=== PATIENT | female | born 1995 ===

== ENCOUNTER 2018-03-19 10:06 | Observation (INO) | payer BC ==
[2018-03-19] MEDS ORDERED: Sodium Chloride 0.9% 1,000 ML IV STA (10:58)
--- NOTE | 2018-03-19 11:35 | ED PDOC ---
HPI: General Adult Time Seen by Provider: 03/19/18 10:37 Chief Complaint (Nursing): Upper Extremity Problem/Injury History Per: Patient Additional Complaint(s): Pt. states 2 days ago she sustained a fracture to the L elbow and was treated in [facility] [place] ED and was also evaluated by Dr. Adam (orthopedist). She was advised to come to ED today for further evaluation. Denies new trauma, numbness, tingling. Past Medical History Reviewed: Historical Data, Nursing Documentation, Vital Signs Vital Signs: Last Vital Signs Temp 98.8 F 03/19/18 13:30 Pulse 87 03/19/18 13:30 Resp 18 03/19/18 13:30 BP 119/55 L 03/19/18 13:30 Pulse Ox 97 03/19/18 13:29 - Surgical History Surgical History: No Surg Hx - Family History Family History: States: No Known Family Hx - Home Medications Home Medications: Ambulatory Orders Medication Instructions Recorded oxyCODONE/Acetaminophen [Percocet 1 tab PO QID PRN #20 tab 03/17/18 5/325 mg Tab] - Allergies Allergies/Adverse Reactions: Allergies Allergy/AdvReac Type Severity Reaction Status Date / Time No Known Allergies Allergy Verified 03/17/18 04:54 Review of Systems ROS Statement: Except As Marked, All Systems Reviewed And Found Negative Physical Exam - Physical Exam Appears: Positive for: Well, Non-toxic, No Acute Distress Skin: Positive for: Normal Color, Warm. Negative for: Rash Eye Exam: Positive for: Normal appearance Neck: Positive for: Normal, Painless ROM Cardiovascular/Chest: Positive for: Regular Rate, Rhythm Respiratory: Positive for: Normal Breath Sounds. Negative for: Respiratory Distress Gastrointestinal/Abdominal: Positive for: Normal Exam, Soft. Negative for: Tenderness Extremity: Positive for: Other (L arm in posterior elbow splint and sling; cap refill < 2 seconds on L hand; no swelling to fingers on L hand) Neurologic/Psych: Positive for: Alert, Oriented (x3), Gait (steady, unassisted) . Negative for: Aphasia, Facial Droop - Laboratory Results Result Diagrams: 03/19/18 11:20 03/19/18 11:20 Urine POC: Negative - ECG ECG: Positive for: Interpreted By Me ECG Rhythm: Positive for: Sinus Rhythm. Negative for: ST/T Changes Rate: 67 O2 Sat by Pulse Oximetry: 99 - Radiology X-Ray: Interpreted by Me (CXR; L ebow x-ray) - Progress ED Course And Treament: Case d/w Dr. Adam who requests pre-op clearance and additional L elbow x-ray. States he will take patient to the OR today. Disposition - Clinical Impression Clinical Impression: Elbow fracture - Patient ED Disposition Is Patient to be Admitted: No - Disposition Disposition Time: 10:56 Condition: STABLE
[2018-03-19 11:46] LABS: ALB/GLOB RATIO 1.2 (1.0-2.1); ALBUMIN 4.5 g/dL (3.5-5.0); ALT/SGPT 23 U/L (9-52); AST/SGOT 25 U/L (14-36); BLOOD UREA NITROGEN 10 mg/dl (7-17); CALCIUM 9.6 mg/dL (8.4-10.2); GFR NON-AFRICAN AMERICAN > 60
[2018-03-19 11:48] LABS: BASO # 0.1 K/uL (0.0-0.2); BASO % 0.8 % (0.0-2.0); EOS # 0.1 K/uL (0.0-0.7); EOS % 0.9 % (0.0-4.0); HEMOGLOBIN 11.9 g/dL (12.0-16.0); LYMPH # 1.8 K/uL (1.0-4.3); LYMPH % 20.8 % (20.0-40.0); MEAN CELL VOLUME 85.7 fl (81.0-99.0); MEAN CORPUSCULAR HEMOGLOBIN 28.8 pg (27.0-31.0); MEAN CORPUSCULAR HGB CONC 33.7 g/dL (33.0-37.0); MEAN PLATELET VOLUME 8.5 fl (7.2-11.7); MONO # 0.5 K/uL (0.0-0.8); NEUT # 6.2 K/uL (1.8-7.0); NEUT % 71.5 % (50.0-75.0); NRBC % 0.1 % (0.0-0.0); RBC 4.14 Mil/uL (3.80-5.20); WHITE BLOOD COUNT 8.7 K/uL (4.8-10.8)
[2018-03-19 11:58] LABS: SQUAMOUS EPITHIAL 4 /hpf (0-5); URINE BACTERIA MOD (<OCC); URINE BILIRUBIN NEGATIVE (NEGATIVE); URINE BLOOD NEGATIVE (NEGATIVE); URINE CLARITY CLOUDY (Clear); URINE COLOR YELLOW (YELLOW); URINE GLUCOSE (UA) NEG (Normal); URINE LEUKOCYTE ESTERASE NEG Leu/uL (Negative); URINE PROTEIN NEGATIVE (NEGATIVE)
--- NOTE | 2018-03-19 12:06 | RAD ---
Date of service: 03/19/2018 PROCEDURE: Radiographs of the left elbow. HISTORY: elbow fracture; as requested by Dr. Adam COMPARISON: No prior. FINDINGS: BONES: Incompletely visualized comminuted distal humeral fracture with intercondylar components. JOINTS: No evidence of subluxation or dislocation. SOFT TISSUES: Normal. JOINT EFFUSION: None. OTHER FINDINGS: None IMPRESSION: Complex, comminuted intercondylar fracture distal left humerus. Limitations of the current study: Detail obscured by overlying fiberglass cast.
--- NOTE | 2018-03-19 12:07 | RAD ---
Date of service: 03/19/2018 HISTORY: clearance COMPARISON: No prior. FINDINGS: LUNGS: No active pulmonary disease. PLEURA: No significant pleural effusion identified, no pneumothorax apparent. CARDIOVASCULAR: Normal. OSSEOUS STRUCTURES: No significant abnormalities. VISUALIZED UPPER ABDOMEN: Normal. OTHER FINDINGS: None. IMPRESSION: No active disease.
[2018-03-19 12:15] LABS: INR 1.2; PROTHROMBIN TIME 13.2 Seconds (9.8-13.1)
[2018-03-19] MEDS ORDERED: ceFAZolin IV 1 gm in Dextrose 1 GM/50 ML BAG IVPB ONE (13:54)
[2018-03-19] MEDS ORDERED: Bupivacaine HCl 0.5% PF (30 ml) Inj ONE ×2 (13:54→14:02)
[2018-03-19] MEDS ORDERED: Sodium Chloride 0.9% 10 ML IV ONE (14:06)
[2018-03-19] MEDS ORDERED: Lidocaine 1% MPF (30 ml) Inj ONE (14:10)
[2018-03-19] MEDS ORDERED: Lactated Ringer's 1,000 ML IV ONE ×2 (14:22→16:10)
[2018-03-19] MEDS ORDERED: Propofol 10 mg/ml Inj (20 ML) ONE (14:23)
[2018-03-19] MEDS ORDERED: Succinylcholine 200 mg/10 ml Inj IV ONE (14:27)
[2018-03-19] MEDS ORDERED: Rocuronium 10 mg/ml (5 ml) ONE (14:27)
[2018-03-19] MEDS ORDERED: Midazolam 2 MG/2 ML VIAL ONE (14:27)
--- NOTE | 2018-03-19 15:59 | PCM.ANESB4 ---
Infraclavicular Block - Femoral Nerve Block Date of Procedure: 03/19/18 Anesthesiologist: Ivan Louis Pre-Procedure Diagnosis: L elbow fracture Post-Procedure Diagnosis: L elbow fracture Procedure Performed: Brachial Plexus at the Infraclavicular area Left - Procedure Infraclavicular Block: The procedure was explained to the patient that it is for the post-operative pain management. Consent was obtained after a thorough discussion with the patient regarding the benefits and possible complications of local anesthetic block of the brachial plexus at the infraclavicular area. The patient was brought to the operating room and standard monitors were applied. Time-out was held with the circulating nurse to confirm the correct surgery and the appropriate block. After applying oxygen by nasal cannula and administering IV Sedation, patient's head was gently rotated away from the operative left shoulder and the area medial to the coracoid process and inferior to the clavicle was carefully palpated. The ultrasound transducer was then applied to the skin in the transverse plane and the brachial plexus was visualized surrounding the axillary artery and deep to the pectoralis major and minor muscles. After thorough identification, this area was prepped with 1 large Chloroprep stick and 1 % Lidocaine was injected subcutaneously for topical anesthesia. At this point, a #21 gauge Stimuplex 4-inch needle was inserted cephalad to the ultrasound transducer and inferior to the clavicle in-plane towards the posterior aspect of the axillary artery. Needle advancement was performed carefully under ultrasound visualization. Nerve stimulator was used and twitch of the affected extremity including fingers, hand, wrist and elbow was obtained at current of 1MA. After repeated negative aspiration, 5cc of 0.375% bupivacaine was injected and this was followed with another 25 cc of 0.375% bupivacaine in 5cc increments. Under ultrasound guidance the local anesthetics were observed surrounding the cords of the brachial plexus. The needle was removed intact and sterile dressing was applied. The patient had stable vital signs, was conscious and in no apparent distress. The patient tolerated the infraclavicular block of the brachial plexus well with stable vital signs was prepared for subsequent surgery.
[2018-03-19] MEDS ORDERED: Liquid Adhesive TOP ONE (18:28)
--- NOTE | 2018-03-19 19:16 | PCM.SURG1 ---
Surgeon's Initial Post Op Note - Surgeon's Notes Surgeon: Oliver Adam MD Manufacturing Engineer Chief: Tayler Mattson PA-C; Scott Forde PA-C Type of Anesthesia: General Endo, Other (Left infraclavicular block pre-op ) Pre-Operative Diagnosis: Left elbow displaced comminuted supracondylar fx Operative Findings: see op report Post-Operative Diagnosis: same as pre-op dx Operation Performed: ORIF left elbow fx and release of ulnar nerve Specimen/Specimens Removed: none Estimated Blood Loss: EBL {In ML}: 75 Date of Surgery/Procedure: 03/19/18 Time of Surgery/Procedure: 15:00
[2018-03-19] MEDS ORDERED: Oxycodone/Acetaminophen 5/325 mg Tab PO PRN (19:19)
[2018-03-19] MEDS ORDERED: HYDROmorphone 1 mg/ml ISec IVP PRN (19:44)
[2018-03-19] MEDS ORDERED: Lactated Ringer's 1,000 ML IV SCH (19:45)
[2018-03-19] MEDS ORDERED: ceFAZolin 1 GM in Sodium Chloride 0.9% 100 ML IVPB ONE (20:30)
[2018-03-19 22:56] VITALS: BP 114/73; PULSE 87; RESP 20; TEMP 98.8; O2SAT 99
[2018-03-20] MEDS ORDERED: ceFAZolin 1 GM in Sodium Chloride 0.9% 100 ML IVPB ONE (02:00)
--- NOTE | 2018-03-20 08:35 | CARD ---
APPROVED REPORT Date of service: 03/19/2018 <Conclusion> Normal sinus rhythm Normal ECG
--- NOTE | 2018-03-20 11:25 | RAD ---
Date of service: 03/19/2018 PROCEDURE: HISTORY: s/p ORIF left elbow fx COMPARISON: 03/19/2018 TECHNIQUE: Two views FINDINGS: There is medial an lateral plating and fixation of the comminuted distal humeral intercondylar fracture fragments. On the lateral view small fracture fragments project over the antecubital region - likely part of the comminuted fracture fragment process. Cerclage wires and pins project over the olecranon on the lateral view and proximal radius. The elbow joint alignment has been restored to normal. Casting material projects over the posterior aspect of the upper arm and forearm IMPRESSION: Status post open reduction internal fixation of left elbow fractures as referenced above
--- NOTE | 2018-03-21 11:52 | RAD ---
Date of service: 03/19/2018 PROCEDURE: Fluoroscopy in excess of 1 hour. HISTORY: FLUOROSCOPY COMPARISON: None TECHNIQUE: Standard protocol for this study/examination. FINDINGS: Submitted images from the current procedure: 4.0 IMPRESSION: Fluoroscopy in excess of 1 hour.
--- NOTE | 2018-03-24 23:16 | OP ---
Copied To: Oliver Adam MD Attending MD: Oliver Adam MD PROCEDURE DATE: 03/19/2018 SURGEON: Oliver Adam MD SENIOR COMMUNICATIONS SPECIALIST: JAYNE Mullen PREOPERATIVE DIAGNOSES: 1. Displaced three-part supracondylar fracture with intercondylar extension, left elbow. 2. Left ulnar nerve neuropathy, cubital tunnel syndrome. POSTOPERATIVE DIAGNOSES: 1. Displaced three-part supracondylar fracture with intercondylar extension, left elbow. 2. Left ulnar nerve neuropathy, cubital tunnel syndrome. 3. Olecranon fracture, proximal ulna. PROCEDURES: 1. Open reduction and internal fixation of supracondylar fracture three-part with intercondylar extension using Synthes parallel plate, 05480. 2. Open reduction and internal fixation using a tension band technique for olecranon fracture, 99734. 3. Neuroplasty of the ulnar nerve at the elbow and cubital tunnel release, 27298. 4. Open debridement of fracture fragments of the left elbow, 92637. 5. Fluoroscopic intraoperative usage of greater than 1 hour, 33791. ANESTHESIA: General and left upper extremity block. ESTIMATED BLOOD LOSS: Minimal. COMPLICATIONS: None. SPECIMENS: None. DISPOSITION: Stable to recovery room. INDICATIONS: This is a 22-year-old female, who presents with displaced left supracondylar humerus fracture as indicated for the above surgery, also with ulnar nerve signs and symptoms, which the patient was indicated for an emergent surgery. DESCRIPTION OF PROCEDURE: The patient was brought to the operating room, placed supine, underwent regional left upper extremity block, followed by general anesthesia. Prophylactic antibiotics were given. The patient was turned into a lateral decubitus position. A non-sterile tourniquet was placed on the patient's left upper extremity. The entire extremity was then prepped and draped in standard surgical fashion. A posterior elbow incision was outlined. The arm was elevated and exsanguinated. Time-out was performed. Incision was made through the skin only. All superficial veins were cauterized. Flaps were raised. Dissection was carried down to identifying the ulnar nerve. Ulnar nerve was identified proximally and a full decompression with neuroplasty was performed using Littler scissors. the cubital tunnel ligament and the two heads of the flexor carpi ulnaris tendons were released to decompress the ulnar nerve. The ulnar nerve was then moved out of the way of the fracture site and held protected with a vessel loop. Work was then begun on identifying the fracture. Due to the severity of the fracture, olecranon osteotomy was indicated. A Chevron olecranon osteotomy was performed with a micro-sagittal saw, followed by osteotomes. The olecranon was elevated with the entirety of the triceps. It was elevated proximally and the fracture site was exposed. The fracture site was highly displaced with shortening and intercondylar extension. There was extensive hematoma. The fracture fragments were debrided with rongeur, curettes, and irrigation. Work was then begun on provisionally reducing the fragments. First, articular fragments were reduced anatomically and held provisionally with Anand wires. After the articular fragments were reduced, reduction was performed to the columns of the humerus. This reduction was provisionally held with K-wires in both medial and lateral column. Next, medial and lateral column plate was selected and placed provisionally on the medial and lateral side of the supracondyle. They were held provisionally with K-wires and proximal screw in the oblong hole. Fluoroscopic images confirmed anatomic reduction of the supracondylar fracture fragments and good placement of plates in both AP and lateral and oblique views. The joint was congruent and well reduced. Next, work was begun on compressing the articular fractures with clamp and multiple locking screws were placed across the fracture fragments and the plate using standard AO technique. After this, the articular fracture fragments were compressed to the lateral and medial columns using reduction clamps and also locking screws in the proximal holes of both medial and lateral plates. All screw holes were filled in standard AO fashion. There was anatomic reduction and compression of all the fracture fragments. No gapping of the fracture fragment was evident. There was no instability with full range of motion of the elbow. Fluoroscopic images confirmed excellent reduction with good placement of hardware and rigid fixation of the fracture fragments. The wound was then copiously irrigated, tourniquet was deflated, and hemostasis was obtained. Work was then begun on fixing the olecranon fracture. The olecranon fracture fragment was openly reduced to the proximal ulna and held provisionally with reduction clamp. Next, two 6.2-mm Anand wires were placed across the fracture fragment. Fluoroscopic images confirmed the extraarticular placement of the K-wires and excellent positioning. Next, a 2-0 mm drill was used transversely over the proximal ulna to pass a cerclage wire. The cerclage wire was passed though the drill hole and [id number] configuration was placed across the proximal edge of the K-wires deep to the triceps insertion point. The wire was tightened, fracture gap was closed. This reconstructed excellent tension band technique. The proximal wires were cut short, bent, and advanced into the proximal ulna finishing the construct. Fluoroscopic images again confirmed excellent placement of the tension band with no gapping of the olecranon site. The supracondylar fracture was also well reduced with no gapping or instability. Full range of motion of the elbow was obtained including flexion, extension, supination, and pronation. Hemostasis was then obtained. The ulnar nerve was again checked for any instability. The soft tissue was closed over the plates using 0 Vicryl sutures. The ulnar nerve was placed back over the medial epicondyle. Subcutaneous deep layers of the tissue were then closed with 0 Vicryl, followed by 2-0 Vicryl, followed by Monocryl for the skin. The patient tolerated the procedure well. Sterile dressing was applied consisting of Xeroform, 4 x 4's, Webril, and a long-arm posterior splint. The patient was returned to the recovery room in excellent condition. During the case, I was assisted by Tayler Mattson PA-C, a licensed physician assistant executive housekeeper. Her help was needed for primary positioning, reduction, and closure of the wound. Her assistance was vital for intraoperative safety of the patient. Oliver Adam MD
--- NOTE | 2018-03-25 07:47 | CON ---
Copied To: Oliver Adam MD Attending MD: Oliver Adam MD DATE: 03/19/2018 REASON FOR CONSULTATION: Left elbow trauma. HISTORY OF PRESENT ILLNESS: A 22-year-old female who presents to [facility] with complaints of left elbow pain. The patient sustained a fall and slipped while doing down the stairs in the restaurant and landing on the left elbow. She presents with severe pain and swelling of the elbow. Initial x-rays confirmed multi-fragmented supracondylar humerus fracture. I was consulted for further evaluation and treatment. PHYSICAL EXAMINATION: EXTREMITIES: Left elbow: There is diffuse swelling. The patient has difficulty moving the elbow due to pain. Also, there is decreased sensation over the ulnar nerve distribution with numbness over the ulnar two digits. The patient has weakness with the handgrip. Full range of motion of the elbow. No tenderness over the distal forearm. Skin is intact. Distal pulses are palpable and +2. IMAGING: X-rays were seen and reviewed of the left elbow showed displaced three-part intercondylar extension supracondylar fracture. CT scan was also seen and reviewed showed three-part with intercondylar displacement supracondylar fracture with some comminution. ASSESSMENT: Left elbow supracondylar fracture with displacement. PLAN: I discussed the above findings with the patient and at this time, I recommended that the patient to undergo an emergent surgery due to swelling and nerve symptoms. This will include open reduction and internal fixation of her supracondylar fracture and cubital tunnel ulnar nerve release. The risks and benefits of the surgery were explained. The risks included, but not limited to bleeding, infection, tendon nerve, vascular injury, instability, chronic pain, and potential need for additional surgery in the future. The patient was taken to the operating room to undergo the above surgery. Oliver Adam MD
== END 2018-03-19 22:00 | disposition home or self-care (01) ==
LOC: H.ER 10:06 → H.ERHOLD 12:04 → H.ER 13:30 → H.MEDSURG1 21:09
DX: S42.402A Unspecified fracture of lower end of left humerus, initial encounter for closed fracture (principal); X58.XXXA Exposure to other specified factors, initial encounter; G56.22 Lesion of ulnar nerve, left upper limb; S52.022A Displaced fracture of olecranon process without intraarticular extension of left ulna, initial encounter for closed fracture
CPT/HCPCS: 11044; 24546; 24685; 64718; 71045; 73070; 73080; 80053; 81003; 81025; 85025; 85610; 85730; 86850; 86900; 93005; 99285; C1713; G0378; J0330; J0690; J2001; J2250; J2704; J3010; J7030; J7120

== ENCOUNTER 2018-03-20 13:04 | Emergency (ER) | payer BC ==
[2018-03-20 13:13] VITALS: BP 113/64; PULSE 75; RESP 19; TEMP 98.8; O2SAT 97
[2018-03-20] MEDS ORDERED: Oxycodone/Acetaminophen 5/325 mg Tab PO STA (13:23)
[2018-03-20] MEDS ORDERED: Oxycodone/Acetaminophen 5/325 mg Tab ONE (13:43)
--- NOTE | 2018-03-20 14:38 | ED PDOC ---
HPI: Wound Care - HPI Time Seen by Provider: 03/20/18 13:13 Chief Complaint (Nursing): Wound Check Chief Complaint (Provider): Hand swelling and elbow pain History Per: Patient Exam Limitations: no limitations Onset/Duration Of Symptoms: Hrs (today) Location Of Injury: Left: Elbow Additional Complaint(s): Dontae Hinojosa, a 22 year old female with no significant past medical history, presents to the emergency room with left elbow pain and hand swelling onset today. Patient was seen yesterday here for left elbow fracture and had surgery performed by Dr. Adam. Patient was discharged home with a prescription of Percocet which she took as needed for pain. She took one tablet today with no relief of pain and noticed increased swelling of her left hand today which prompted her emergency room visit. She denies any other medical complaints. PMD: None provided Past Medical History Reviewed: Historical Data, Nursing Documentation, Vital Signs Vital Signs: Last Vital Signs Temp 98.8 F 03/20/18 13:12 Pulse 75 03/20/18 13:12 Resp 19 03/20/18 13:12 BP 113/64 03/20/18 13:12 Pulse Ox 97 03/20/18 13:12 - Medical History PMH: No Chronic Diseases - Surgical History Other surgeries: Elbow fracture - Family History Family History: States: Unknown Family Hx - Social History Current smoker - smoking cessation education provided: No Alcohol: Social Drugs: Denies - Home Medications Home Medications: Ambulatory Orders Medication Instructions Recorded oxyCODONE/Acetaminophen [Percocet 1 tab PO QID PRN #20 tab 03/17/18 5/325 mg Tab] - Allergies Allergies/Adverse Reactions: Allergies Allergy/AdvReac Type Severity Reaction Status Date / Time No Known Allergies Allergy Verified 03/20/18 13:08 Review of Systems ROS Statement: Except As Marked, All Systems Reviewed And Found Negative Musculoskeletal: Positive for: Other (left elbow pain and left hand swelling) Physical Exam - Reviewed Nursing Documentation Reviewed: Yes Vital Signs Reviewed: Yes - Physical Exam Appears: Positive for: Non-toxic, No Acute Distress Head Exam: Positive for: ATRAUMATIC, NORMAL INSPECTION, NORMOCEPHALIC Skin: Positive for: Normal Color, Warm, DRY Eye Exam: Positive for: EOMI, Normal appearance, PERRL ENT: Positive for: Normal ENT Inspection Neck: Positive for: Normal, Painless ROM Cardiovascular/Chest: Positive for: Regular Rate, Rhythm Respiratory: Positive for: Normal Breath Sounds. Negative for: Respiratory Distress Pulses-Radial (L): 2+ Pulses-Radial (R): 2+ Extremity: Positive for: Normal ROM (to all digits), Swelling (left hand moderate edema), Other (distal sensation intact ) Neurologic/Psych: Positive for: Alert, Oriented - ECG O2 Sat by Pulse Oximetry: 97 (RA) Pulse Ox Interpretation: Normal Medical Decision Making Medical Decision Making: Time: 13:13 Initial Impression: elbow pain, hand swelling Initial Plan: --Orthopedic consult --Percocet 1 tab PO -spoke to Dr. Adam who suggested to loosen the ashly wrap around the splint -patient was instructed to follow up in his office on Sunday Scribe Attestation: Documented by Marilou Shannon, acting as a scribe for JAYNE Johnson. Provider Scribe Attestation: All medical record entries made by the Scribe were at my direction and personally dictated by me. I have reviewed the chart and agree that the record accurately reflects my personal performance of the history, physical exam, medical decision making, and the department course for this patient. I have also personally directed, reviewed, and agree with the discharge instructions and disposition. Disposition - Clinical Impression Clinical Impression: Encounter for postoperative wound check - Disposition Condition: STABLE Additional Instructions: Follow up with Dr. Adam on Sunday Instructions: Surgical Wound (DC) Forms: [employer] (Rwandan)
--- NOTE | 2018-03-20 14:54 | ED PDOC ---
HPI: Wound Care - HPI Time Seen by Provider: 03/20/18 13:13 Chief Complaint (Nursing): Wound Check Chief Complaint (Provider): wound check History Per: Patient Additional Complaint(s): 22 yo female, no PMH, presents to ED for evaluation of continued pain and increased swelling to left elbow s/p surgery by Dr. Adam yesterday due to fracture. Pt reports swelling in her hand and fingers. Pt took 1 tab Percocet Po with minimal relief. Past Medical History Reviewed: Nursing Documentation, Vital Signs Vital Signs: Last Vital Signs Temp 98.8 F 03/20/18 13:12 Pulse 75 03/20/18 13:12 Resp 19 03/20/18 13:12 BP 113/64 03/20/18 13:12 Pulse Ox 97 03/20/18 14:46 - Medical History PMH: No Chronic Diseases - Surgical History Other surgeries: Elbow surgery to fix fracture - Family History Family History: States: Unknown Family Hx - Home Medications Home Medications: Ambulatory Orders Medication Instructions Recorded oxyCODONE/Acetaminophen [Percocet 1 tab PO QID PRN #20 tab 03/17/18 5/325 mg Tab] - Allergies Allergies/Adverse Reactions: Allergies Allergy/AdvReac Type Severity Reaction Status Date / Time No Known Allergies Allergy Verified 03/20/18 13:08 Review of Systems ROS Statement: Except As Marked, All Systems Reviewed And Found Negative Musculoskeletal: Positive for: Arm Pain Physical Exam - Reviewed Nursing Documentation Reviewed: Yes Vital Signs Reviewed: Yes - Physical Exam Appears: Positive for: Well, Non-toxic, No Acute Distress Head Exam: Positive for: ATRAUMATIC, NORMAL INSPECTION, NORMOCEPHALIC Skin: Positive for: Normal Color, Warm, DRY Eye Exam: Positive for: EOMI, Normal appearance, PERRL ENT: Positive for: Normal ENT Inspection Neck: Positive for: Normal, Painless ROM Cardiovascular/Chest: Positive for: Regular Rate, Rhythm Respiratory: Positive for: CNT, Normal Breath Sounds Gastrointestinal/Abdominal: Positive for: Normal Exam, Soft Back: Positive for: Normal Inspection Extremity: Positive for: Swelling, Other ((+) posterior elbow splint in place. exposed hand with moderate edema, no ecchymosis. FROM to all digits. distal sensation intact and radial pulse 2+) Neurologic/Psych: Positive for: Alert, Oriented - ECG O2 Sat by Pulse Oximetry: 97 Medical Decision Making Medical Decision Making: Medicated with 1 tab Percocet PO Case discussed with Dr. Adam, who advised to loosen edgar around splint. Follow up in office on Sunday Edgar wrap loosened and Pt reports pain improved. Pt will follow up in office on Sunday and reports that she will return to ED if aymptoms worsen at anytime Disposition - Clinical Impression Clinical Impression: Encounter for postoperative wound check - Patient ED Disposition Is Patient to be Admitted: No - Disposition Disposition: Routine/Home Disposition Time: 14:54 Condition: STABLE Additional Instructions: Follow up with Dr. Adam on Sunday Instructions: Surgical Wound (DC) Forms: [employer] (Swedish)
== END 2018-03-20 14:30 | disposition home or self-care (01) ==
LOC: H.ER 13:04
DX: Z48.01 Encounter for change or removal of surgical wound dressing (principal)